=== PATIENT | female | born 1940 | race Caucasian/White ===

== ENCOUNTER → 2020-08-26 13:14 | Outpatient (CLI) | payer MEDICARE, BC ==
[2020-08-26 13:38] LABS: HEMATOCRIT 44.3 % (36.0-48.0); HEMOGLOBIN 14.5 g/dL (12-16); LYMPHOCYTES 27.4 % (15-50); MCH 29.9 pg (26.0-34.0); MCHC 32.7 g/dL (31.0-37.0); MCV 91.3 fL (80.0-100.0); MEAN PLATELET VOLUME 9.6 fL (7.4-10.4); NEUTROPHILS 60.2 % (40-80); PLATELET COUNT 202 10x3/uL (130-400); RBC 4.85 10x6/uL (4.00-5.40); RDW 13.3 % (11.5-14.5); WBC 5.5 10x3/uL (4.8-10.8)
== END | disposition home or self-care (01) ==
LOC: D.LABREF 13:14
PROVIDERS: ATTEND Internal Medicine Pulmonary Disease
DX: J30.2 Other seasonal allergic rhinitis (principal)

== ENCOUNTER → 2020-10-25 09:32 | Outpatient (CLI) | payer MEDICARE, BC | END | disposition home or self-care (01) | LOC: D.RAD 09:30 | PROVIDERS: ATTEND Nurse Practitioner | DX: R13.19 Other dysphagia (principal) ==

== ENCOUNTER → 2020-11-12 09:02 | Outpatient (CLI) | payer MEDICARE, BC ==
--- NOTE | ~2020-11-12 | EC ---
PATIENT:LETTY FWOLER DATE OF SERVICE: 11/12/20 SEX: F MEDICAL RECORD: [id number] DATE OF : 42 LOCATION:D[facility] AGE OF PATIENT: 80 ADMISSION DATE: 11/12/20 REFERRING PHYSICIAN: INTERPRETING PHYSICIAN: CODY PEPE MD ECHOCARDIOGRAM REPORT ECHO CHARGES 4 ECHO COMPLETE Date: 11/12/20 CLINICAL DIAGNOSIS: ANGINA/HEART MURMUR ECHOCARDIOGRAPHIC MEASUREMENTS (adult normal given) AC root (d.<3.7cm) 3.6 cm LV Septum d (<1.2 cm> 1.3 cm Valve Excursion 1.9 cm LV Septum (systole) 1.6 cm Left Atria (s.<4.0cm> 2.9 cm LVPW d(<1.2cm) 1.5 cm RV (d.<2.3cm) 3.3 cm LVPW (sytole) 1.6 cm LV diastole(<5.6CM) 5.1 cm MV E-F(>70mm/sec) cm LV systole 3.7 cm LVOT Diameter 1.8 cm MV exc.(>10mm) cm Est.ejection fraction (50-75%) % DOPPLER: LVIT cm/sec A 85.0 cm/sec E 72.0 cm/sec LA cm/sec RVSP 17 mmHg LVOT 118 cm/sec AOP1/2T m/s Asc. Ao 141 cm/sec RVOT 80 cm/sec RA cm/sec PA 120 cm/sec AV Gradient Peak 7.97 mmHg AV Mean 3.53 mmHg AV Area 2.2 cm MV Gradient Peak 4.79 mmHg MV Mean 1.94 mmHg MV Area cm COMMENTS: Schedule Manager: 2 EBONY SAVAGE Records Supervisor: 3 Dr. Herrera TAPE# PACS Pericardial Effusion N DATE OF SERVICE: Adequate 2D, color-flow imaging, spectral Doppler, and M-Mode. FINDINGS: Mild LVH. LV internal dimension is normal. Wall motion is normal. EF is greater than or equal to 55%. Aortic valve is tricuspid. No evidence of stenosis by Doppler interrogation. Left atrium is normal. Mitral valve shows no prolapse. Trace MR. Right side is grossly normal. Trace TR. TRANSINT:[id number] Voice Confirmation ID: [id number] DOCUMENT ID: [id number] ECHOCARDIOGRAM REPORT [id number] MALCOLM,CODY MOORE MD CC: [id number] DICTATION DATE: 11/12/20 1310 MATERIAL LOADER: 11/12/20 2304 [facility] [address] [place] [id number]
== END | disposition home or self-care (01) ==
LOC: D.HCCECHO 09:02
PROVIDERS: ATTEND Internal Medicine Cardiovascular Disease
DX: I20.9 Angina pectoris, unspecified (principal)